=== PATIENT | female | born 1960 | race Caucasian/White ===

== ENCOUNTER 2018-07-06 08:55 | Day surgery (SDC) | payer BC, OTHER ==
[~2018-07-06] VITALS: Ht 157.5 cm; Wt 72.3 kg
[2018-07-06] MEDS ORDERED: VITAMIN D (09:54)
[2018-07-06] MEDS ORDERED: AMLODIPINE (09:54)
[2018-07-06] MEDS ORDERED: IRON (09:54)
[2018-07-06] MEDS ORDERED: OMEPRAZOLE (09:54)
[2018-07-06 09:56] VITALS: Ht 157.5 cm; Wt 72.3 kg
[2018-07-06 10:14] VITALS: BP 164/75; PULSE 64; RESP 18
--- NOTE | 2018-07-06 10:28 | PREAC ---
Date/Time of Note Date/Time of Note DATE: 07/06/18 TIME: 10:27 Anesthesia Eval and Record Evaluation Time Pre-Procedure Interview DATE: 07/06/18 TIME: 10:27 Age 57 Sex female NPO: 8 hrs Preoperative diagnosis dysphagia, weight loss Planned procedure EGD, colonoscopy Past Medical History Past Medical History: Includes Cardio: HTN Pulm: Asthma GI: Obesity Surgery & Anesthesia Issues Hx of PONV Meds Anticoagulation: No Beta Paul within 24 hr: No Reason Beta Paul not given: Pt. not on B-Paul Reported Medications [Vitamin D] No Conflict Check 07/06/18 [Iron ] No Conflict Check 07/06/18 [Amlodipine] No Conflict Check 07/06/18 [Omeprazole] No Conflict Check 07/06/18 Meds reviewed: Yes Allergies Coded Allergies: No Known Allergy (Unverified , 07/06/18) Allergies Reviewed: Yes Labs/Studies Labs Reviewed: Reviewed by anesthesiologist test: N/A Studies: ECG (n/a), CXR (n/a) Pre-procedure Exam Last vitals Vital Signs Date Temp Pulse Resp B/P (MAP) Pulse Ox O2 O2 Flow FiO2 Time Delivery Rate 07/06/18 97.7 64 18 164/75 98 Room Air 10:14 (104) Airway: Adequate mouth opening Mallampati: Mallampati I Teeth: Normal Lung: Normal Heart: Normal ASA Physical Status ASA physical status: 2 Emergency: None Planned Anesthetic General/MAC: MAC Planned Pain Management Parenteral pain med Pre-operative Attestations Prior to commencing anesthesia and surgery, the patient was re-evaluated, there was verification of: *The patient's identity *The results of appropriate recent lab work and preoperative vital signs *The above evaluation not changing prior to induction *Anesthetic plan, risk benefits, alternative and complications discussed with patient/family; questions answered; patient/family understands, accepts and w ishes to proceed. DRAKE DENT MD Jul 06, 2018 10:28
[2018-07-06] MEDS ORDERED: ONDANSETRON 4 MG INJ IV PRN (10:30)
[2018-07-06 12:00] VITALS: BP 160/73; PULSE 64; RESP 19
[2018-07-06] MEDS ORDERED: LABETALOL HCL 20MG INJ IV ONE (12:00)
--- NOTE | 2018-07-06 13:28 | PAC ---
Date/Time of Note Date/Time of Note DATE: 07/06/18 TIME: 13:27 Post-Anesthesia Notes Post-Anesthesia Note Last documented vital signs Vital Signs Date Temp Pulse Resp B/P (MAP) Pulse Ox O2 O2 Flow FiO2 Time Delivery Rate 07/06/18 97.7 64 19 160/73 95 Room Air 12:00 (102) 07/06/18 97.7 10:14 Activity: WNL Respiratory function: WNL Cardiovascular function: WNL Mental status: Baseline Pain reasonably controlled: Yes Hydration appropriate: Yes Nausea/Vomiting absent: No DRAKE DENT MD Jul 06, 2018 13:28
== END 2018-07-06 13:08 | disposition home or self-care (01) ==
LOC: GIL 08:55
PROVIDERS: ATTEND Internal Medicine Gastroenterology
DX: Z12.11 Encounter for screening for malignant neoplasm of colon (principal); K64.4 Residual hemorrhoidal skin tags; K57.30 Diverticulosis of large intestine without perforation or abscess without bleeding; K44.9 Diaphragmatic hernia without obstruction or gangrene; K29.80 Duodenitis without bleeding
CPT/HCPCS: 43239; 45378; 88305; 88312; Z7610; 88313

== ENCOUNTER 2018-10-05 14:12 | Emergency (ER) | payer SELFPAY ==
[~2018-10-05] VITALS: Ht 162.6 cm; Wt 73.4 kg
[~2018-10-05 14:12] MED LIST: AMLODIPINE; IRON; OMEPRAZOLE; VITAMIN D
[2018-10-05 14:22] VITALS: BP 157/72; PULSE 81; RESP 21; Ht 162.6 cm; Wt 73.4 kg
== END 2018-10-05 14:47 | disposition left against medical advice (07) ==
LOC: E/R 14:12
DX: Z53.21 Procedure and treatment not carried out due to patient leaving prior to being seen by health care provider (principal)